=== PATIENT | male | born 1990 | race Two or more races ===

== ENCOUNTER 2022-12-03 16:06 | Emergency (ER) | payer SELFPAY ==
[2022-12-03 16:23] VITALS: BP 112/50; PULSE 80; RESP 18; TEMP 36.6; O2SAT 98; BMI 29.0
--- NOTE | 2022-12-03 16:36 | PC.NURSE ---
PT WAS CALLED IN ANXIETY, HOWEVER [facility] STATES SHE WAS MADE SI STATEMENTS TO THEM AND POD HAD GOTTEN AN EXPECT CALL. PT WAS LET OUT OF THE EMERGENCY DEPARTMENT. [facility] NOTIFIED.
== END 2022-12-03 18:10 | disposition left against medical advice (07) ==
PROVIDERS: Emergency Provider Emergency Medicine
DX: F41.9 Anxiety disorder, unspecified (principal)
CPT/HCPCS: 99281; 99283